=== PATIENT | female | born 1985 | race Caucasian/White ===

== ENCOUNTER → 2018-11-30 10:21 | Outpatient (CLI) | payer OTHER, SELFPAY | PROVIDERS: Visit Provider Obstetrics & Gynecology | DX: Z36.85 Encounter for antenatal screening for Streptococcus B (principal) | CPT/HCPCS: 87077; 87081; 87186 ==

== ENCOUNTER 2018-12-15 16:30 | Inpatient (IN) | payer OTHER, SELFPAY ==
[2018-12-15 16:58] VITALS: BMI 39.4
[2018-12-15] MEDS: Lactated Ringers 1,000 ML 50 ML IV (18:00)
[2018-12-15 18:15] LABS: Absolute Neutrophil Count 6.9 X10^3/uL (2.0-7.7); Basophil# 0.01 X10^3/uL; Basophil% 0.1 % (0-1); Eosinophil# 0.09 X10^3/uL; Eosinophils% 0.9 % (0-5); Hematocrit 33.8 % (37-47); Hemoglobin 10.8 g/dl (12.0-15.0); Lymphocyte % 20.2 % (19-41); Mean Corpuscular Hgb 26.3 pg (27.0-32.0); Mean Corpuscular Volume 82.4 fL (81-99); Mean Platelet Vol. 11.2 fl (6.2-12.0); Monocyte# 0.87 X10^3/uL; Monocyte% 8.8 % (0-10); Neutrophil % 69.6 % (47-70); Platelet Count 276 K/mm3 (150-450); RBC Distribution Width CV 15.8 % (11.6-14.6); RBC Distribution Width SD 46.1 fl (35.1-43.9); White Blood Count 9.9 K/mm3 (4.4-11.0)
[2018-12-15 18:16] LABS: POSITIVE COUNT NO; POSITIVE DIFFERENTIAL NO; POSITIVE MORPHOLOGY NO
--- NOTE | 2018-12-15 18:44 | PCM.HPOB.BLA ---
History and Physical Date of Admission: 12/15/18 OB HISTORY AND PHYSICAL EXAMINATION History of this : 33 yo female Ab0 with EDC 12/24/2018 by 8 weeks 3 days Ultrasound, presents to Labor and Delivery for induction of labor 2/2 cholestasis of at 38 5/7 wk EGA. She denies significant itching, states this has improved. care remarkable for - Cholestasis of noted at 38+ week visit; to L and D for induction Pertinent Past Medical History: A positive Rubella -immune Allergies: NKDA Medications: During - DHA 200 mg capsule; Augmentin 500 mg-125 mg tablet Review of Systems: Non-contributory PHYSICAL EXAMINATION General Appearence: 33 yo female in no acute distress Vital Signs: AF, VSS Heart: RRR without rubs or gallops Lungs: CTA x 2 Breasts: deferred Abdomen: gravid Pelvis: Cervix: L/Th/Cl high UNABLE TO PLACE SMITH CATHETER Presentation: cephalic Fetus: Size: AGA Movement: present Heart: 120-130s avg variability. Accels to 180s Occasional variables. Impression /Plan: Intrauterine .38 5/7 wk with cholestasis of . Admitted for induction of labor. Unable to place smith as cervix too closed for smith. IV started Irreg UCs and not painful. Begin cytotec induction of labor. Watch progress, descent. Plan for AROM and pitocin prn GBS positive. PCN for GBS prophylaxis. Will start this at approx 4 cm dilation. See Progress Notes for Changes: Physician's Signature: Date:
[2018-12-15] MEDS: 0.9% Saline Lock 10 ML Syringe IV (19:47)
--- NOTE | 2018-12-15 21:33 | PCM.PN.BLA ---
Progress Note Induction at 38 5/7 wk unfavorable cervix. Cholestasis of EFM 120-130 avg variability Accels Category I tracing UCs -- irregular q 1-5 mins CX: deferred A/P: Cholestasis of induction of labor at 38 5/7 wk Category I tracing Continue cytotec PO overnight. Unable to place smith bulb To AROM and pitocin as able.
[2018-12-16] MEDS: Acetaminophen 325 MG Tablet PO (00:03)
[2018-12-16] MEDS: 0.9% Normal Saline 100 ML IV.SOLN. INTRA-UTER (06:27)
--- NOTE | 2018-12-16 06:32 | PCM.PN.BLA ---
Progress Note LABOR INDUCTION progress note Able to rest, got some sleep. Cramping overnight but up and moving helped a little. denies any itching. AVSS Cytotec last dose given approx 4 am EFM 120-s avg variability. Accels to 150-160s Irregular UCs CX: softer, anterior , high. Smith inserted with stylette. Balloon inflated with 30 cc of NS A/P: 38 6/7 wk induction unfavorable cervix 2/2 cholestasis of . LFTs wnl but bile acids high. S/P three doses of Cytotec po. To smith bulb induction this am. Pitocin per protocol to begin 4 hr after last Cytotec dose.
[2018-12-16] MEDS: Ondansetron 4 MG/2 ML Vial IV (06:53)
[2018-12-16] MEDS: Nalbuphine 10 MG/ML Ampul IV ×2 (06:53→10:18)
[2018-12-16] MEDS: 0.9% Saline Lock 10 ML Syringe IV ×2 (06:54→08:16)
[2018-12-16] MEDS: Oxytocin 30 units/NS 500 ml 30 UNITS/500 ML IV.SOLN IV (08:16)
[2018-12-16] MEDS: proCHLORPERazine 10 MG/2 ML Vial IV (10:24)
[2018-12-16] MEDS: Lactated Ringers 1,000 ML 50 ML IV ×3 (12:45→22:57)
[2018-12-16] MEDS: fentaNYL-bupivacaine (epidural) 100 ML BAG EPIDURAL ×3 (13:23→22:57)
[2018-12-17] MEDS: Ondansetron 4 MG/2 ML Vial IV (00:24)
[2018-12-17] MEDS: proCHLORPERazine 10 MG/2 ML Vial IV (03:01)
[2018-12-17] MEDS: Oxytocin 30 units/NS 500 ml 30 UNITS/500 ML IV.SOLN 334 UNITS IV (04:58)
--- NOTE | 2018-12-17 05:18 | PCM.OPRPT ---
Vaginal Delivery Maternal Presentation: Medically Indicated Induction - Cholestasis of Method of Induction: Pitocin, Reid Bulb, Amniotomy, Cytotec Medical Reason for Induction: Maternal Medical Condition: list: - Cholestasis of Amniotic Membrane Rupture Type: Artificial Amniotic Fluid Description: Clear Final FANNY: 12/23/18 Final FANNY Source: US <20 weeks Gestational age: 39 Weeks and 1 Days Date of Procedure: 12/17/18 Pre-Operative Diagnosis: Intrauterine , Cholestasis of Post-Operative Diagnosis: Intrauterine , Cholestasis of Surgery/ Procedure Performed: Vacuum Assisted Vaginal Delivery Type of Anesthesia: Epidural Description of Procedure: Spontaneous vaginal delivery of a viable male with Apgars of 8/9 from an occiput anterior presentation with clear amniotic fluid and normal three-vessel placenta. First-degree midline episiotomy extended to a second-degree midline laceration repaired with 3-0 Rapide suture under epidural. Cervix protruded to introitus after delivery. Kiwi vacuum used x2 gentle pulls from low outlet after 4 hours of pushing and increasing maternal fatigue. Sponges okay. Delivery physician: Matthew Berumen MD. Presentation: Vertex Placental Delivery Description: Spontaneous Placenta Disposition: [facility] Cord Vessel Description: 3 Vessels Cord Gases drawn per routine: ABG Cord Entanglement: Around neck x 2, tight Estimated Blood Loss: 250 cc Infant A gender: Male (1 minute): 8 (5 minute): 9 Episiotomy Description: Midline, 1st degree Laceration: Midline, 2nd degree Medications given after delivery: IV Pitocin Complications: None
[2018-12-17] MEDS: Oxytocin 30 units/NS 500 ml 30 UNITS/500 ML IV.SOLN 167 UNITS IV (05:30)
[2018-12-17] MEDS: Methylergonovine 0.2 MG/ML Ampul IM (06:28)
[2018-12-17] MEDS: Ibuprofen 600 MG Tablet PO ×2 (06:34→13:01)
[2018-12-17 08:00] VITALS: BP 132/73; PULSE 76; RESP 18; TEMP 36.1
[2018-12-17] MEDS: Acetaminophen 500 MG Tablet 1000 MG PO (08:25)
--- NOTE | 2018-12-17 09:15 | NURSING ---
0830 pt oob up to chair; pt gait steady
[2018-12-17 12:00] VITALS: BP 138/82; PULSE 69; RESP 18; TEMP 36.1
[2018-12-17 16:22] VITALS: BP 126/70; RESP 16; TEMP 36.2; O2SAT 76
[2018-12-17 21:00] VITALS: BP 142/82; PULSE 88; RESP 16; TEMP 36.9
[2018-12-18] MEDS: Ibuprofen 600 MG Tablet PO ×3 (01:36→17:59)
[2018-12-18 03:04] VITALS: PULSE 79; RESP 17
[2018-12-18 04:00] VITALS: BP 112/69; PULSE 84; RESP 15
[2018-12-18 08:00] VITALS: BP 127/91; PULSE 76; RESP 18; TEMP 36
--- NOTE | 2018-12-18 10:00 | PCM.PN.OB ---
Subjective: Patient without complaints. Breast-feeding going well. Wants to stay another day. - Physical Exam Vital Signs Temp Pulse Resp BP Pulse Ox 98.5 F 84 15 112/69 76 12/17/18 21:00 12/18/18 04:00 12/18/18 04:00 12/18/18 04:00 12/17/18 16:22 Oxygen Delivery Method Room Air Weight: 229 lb 15.074 oz Body Mass Index (BMI) 39.4 Intake and Output for Last 24 Hours 12/16/18 12/17/18 12/18/18 23:59 23:59 23:59 Intake Total 2277 / 2277 1999 / 1999 550 / 550 Output Total 550 / 550 1050 / 1050 Balance 1727 / 1727 950 / 950 550 / 550 Medical Necessity - Tobacco Use Smoking Status: Never smoker Assessment/Plan Doing well day #1. Continuing present care.
[2018-12-18 14:00] VITALS: BP 131/78; PULSE 80; RESP 18; TEMP 36.8
--- NOTE | 2018-12-18 14:49 | PCM.DCVAG ---
Discharge Diet: No Restrictions Discharge Activity: May Shower, May Take a Tub Bath May resume sexual activity in: 4-6 weeks Additional Activity Instructions:: Nothing in the vagina for 4-6 weeks. You may return to work/school in 6 weeks. Call your doctor if you observe: Fever of 101 or Higher, Inability to urinate, Inability to have a bowel movement, Using more than one pad per hour Additional Instructions: If you experience any of the following, contact your healthcare provider. Bleeding that soaks a pad every hour for 2 hours Unrelieved incision or abdominal pain Swelling, redness, discharge or bleeding from your incision or episiotomy site Your incision begins to separate Problems urinating (including inability to urinate or burning while urinating). Visual changes Severe headache Flu-like symptoms Pain or redness in one of both of your breasts Pain, warmth, tenderness or swelling in your legs, especially the calf area Frequent nausea and vomiting Symptoms of depression or anxiety If you experience any of the following, call 911 or go to the nearest Emergency Room. Chest pain Problems breathing Seizure activity Partial or complete paralysis of a body part, slurred speech, weakness or drooping of the face, or a sudden inability to walk or hold your balance Allergies/Adverse Reactions: Allergies No Known Allergies Allergy (Verified 07/28/13 22:51) Medications to take at Discharge Vits [Prenatabs FA] 1 tablet PO DAILY 12/15/18 Please Follow Up With: Matthew Berumen MD - [phone] When: Call to make an appointment with your doctor in 6 weeks. Primary Care Physician: Bertha Sims MD [Primary Care Provider] - Test Results: Test results from this visit will be discussed in further detail at your follow-up appointment, if applicable.
--- NOTE | 2018-12-18 14:50 | DCINST_ITS ---
Discharge Diet: No Restrictions Discharge Activity: May Shower, May Take a Tub Bath May resume sexual activity in: 4-6 weeks Additional Activity Instructions:: Nothing in the vagina for 4-6 weeks. You may return to work/school in 6 weeks. Call your doctor if you observe: Fever of 101 or Higher, Inability to urinate, Inability to have a bowel movement, Using more than one pad per hour Additional Instructions: If you experience any of the following, contact your healthcare provider. * Bleeding that soaks a pad every hour for 2 hours * Unrelieved incision or abdominal pain * Swelling, redness, discharge or bleeding from your incision or episiotomy site * Your incision begins to separate * Problems urinating (including inability to urinate or burning while urinating). * Visual changes * Severe headache * Flu-like symptoms * Pain or redness in one of both of your breasts * Pain, warmth, tenderness or swelling in your legs, especially the calf area * Frequent nausea and vomiting * Symptoms of depression or anxiety If you experience any of the following, call 911 or go to the nearest Emergency Room. * Chest pain * Problems breathing * Seizure activity * Partial or complete paralysis of a body part, slurred speech, weakness or drooping of the face, or a sudden inability to walk or hold your balance Allergies/Adverse Reactions: Allergies No Known Allergies Allergy (Verified 07/28/13 22:51) Medications to take at Discharge Vits [Prenatabs FA] 1 tablet PO DAILY 12/15/18 Please Follow Up With: Matthew Berumen MD - [phone] When: Call to make an appointment with your doctor in 6 weeks. Primary Care Physician: Bertha Sims MD [Primary Care Provider] - Test Results: Test results from this visit will be discussed in further detail at your follow- up appointment, if applicable.
[2018-12-18 20:51] VITALS: BP 130/74; PULSE 76; RESP 18; TEMP 36.2
[2018-12-19 02:19] VITALS: BP 144/82; PULSE 65; RESP 18; TEMP 36
[2018-12-19 08:50] VITALS: BP 131/81; PULSE 85; RESP 14; TEMP 36.2
--- NOTE | 2018-12-19 11:05 | PCM.PN.OB ---
Subjective: Patient without complaints. Breast-feeding going well. Ready to go home today. - Physical Exam Vital Signs Temp Pulse Resp BP Pulse Ox 97.2 F L 85 14 131/81 H 76 12/19/18 08:50 12/19/18 08:50 12/19/18 08:50 12/19/18 08:50 12/17/18 16:22 Oxygen Delivery Method Room Air Weight: 229 lb 15.074 oz Body Mass Index (BMI) 39.4 Intake and Output for Last 24 Hours 12/17/18 12/18/18 12/19/18 23:59 23:59 23:59 Intake Total 1999 / 1999 550 / 550 Output Total 1050 / 1050 Balance 950 / 950 550 / 550 Medical Necessity - Tobacco Use Smoking Status: Never smoker Assessment/Plan Doing well day #2 status post routine spontaneous vaginal delivery. Will release to home with routine instructions.
--- NOTE | 2018-12-19 11:11 | DS.PCM_ITS ---
Discharge Summary Date of Admission: 12/15/18 Date of Discharge: 12/19/18 Summary: Admission diagnosis: 38+ Week Intrauterine with Cholestasis of Discharge diagnosis: 38+ Week Intrauterine with Cholestasis of Procedure: Spontaneous Vaginal Delivery HPI: 33 yo female Ab0 with EDC 12/24/2018 by 8 weeks 3 days Ultrasound, presents to Labor and Delivery for induction of labor 2/2 cholestasis of at 38 5/7 wk EGA. She denies significant itching, states this has improved. PE: Unremarkable. Hospital Course: The patient is a 33 year old who presented to L and D at 38+ weeks gestation. She had Cytotec started and after overnight Cytotec a Reid balloon was placed which allowed dilating the cervix to about 3 to 4 cm. Rupture of membranes was completed and she progressed and delivered via vacuum- assisted delivery the following day. the patient did well and it was felt that she was ready for discharge on post day #2. Homegoing Instruction: She was instructed not to drive for several days or if using narcotic pain medication, not to put anything in the vagina for 4 weeks and to call the office for an appointment in 6 weeks. Discharge Medications: Patient was instructed to continue vitamins and iron for about 6 weeks or as long she is breast-feeding. - Physical Exam Vital Signs Temp Pulse Resp BP Pulse Ox 97.2 F L 85 14 131/81 H 76 12/19/18 08:50 12/19/18 08:50 12/19/18 08:50 12/19/18 08:50 12/17/18 16:22 Oxygen Delivery Method Room Air Weight: 229 lb 15.074 oz Body Mass Index (BMI) 39.4 Intake and Output for Last 24 Hours 12/17/18 12/18/18 12/19/18 23:59 23:59 23:59 Intake Total 1999 / 1999 550 / 550 Output Total 1050 / 1050 Balance 950 / 950 550 / 550
== END 2018-12-19 11:20 | disposition home or self-care (01) | DRG 988 ==
PROVIDERS: Obstetrics & Gynecology; Admitting Provider Obstetrics & Gynecology; Family Provider Family Medicine; PCP Family Medicine; Referring Provider Obstetrics & Gynecology; Visit Provider Obstetrics & Gynecology
DX: K83.1 Obstruction of bile duct (principal); O26.62 Liver and biliary tract disorders in childbirth; Z37.0 Single live birth; O69.1XX0 Labor and delivery complicated by cord around neck, with compression, not applicable or unspecified; O70.1 Second degree perineal laceration during delivery; Z3A.39 39 weeks gestation of pregnancy; O26.813 Pregnancy related exhaustion and fatigue, third trimester; O99.613 Diseases of the digestive system complicating pregnancy, third trimester; K21.9 Gastro-esophageal reflux disease without esophagitis; O34.43 Maternal care for other abnormalities of cervix, third trimester; O99.820 Streptococcus B carrier state complicating pregnancy
CPT/HCPCS: 59025; 59050; 85025; 86850; 86900; J7120; A4216; J2405

== ENCOUNTER → 2018-12-22 10:00 | Outpatient (CLI) | payer OTHER, SELFPAY ==
[2018-12-15 16:58] VITALS: BMI 39.4
== END ==
PROVIDERS: Family Provider Family Medicine; PCP Family Medicine; Referring Provider Obstetrics & Gynecology; Visit Provider Obstetrics & Gynecology
DX: Z39.1 Encounter for care and examination of lactating mother (principal)
CPT/HCPCS: 96152

== ENCOUNTER → 2020-02-01 14:55 | Outpatient (CLI) | payer OTHER, SELFPAY ==
[2020-02-07 03:51] LABS: HPV Reflexed? NOT INDICATED
== END ==
PROVIDERS: PCP Family Medicine; Visit Provider Obstetrics & Gynecology
DX: Z12.4 Encounter for screening for malignant neoplasm of cervix (principal)
CPT/HCPCS: 88175; G0145

== ENCOUNTER → 2020-06-21 15:42 | Outpatient (CLI) | payer OTHER, SELFPAY | PROVIDERS: PCP Family Medicine; Referring Provider Nurse Practitioner Family; Visit Provider Nurse Practitioner Family | DX: Z20.828 Contact with and (suspected) exposure to other viral communicable diseases (principal) | CPT/HCPCS: 87635; U0003 ==

== ENCOUNTER → 2020-11-20 | Outpatient (CLI) | payer OTHER, SELFPAY ==
[2020-11-20 15:50] LABS: Absolute Lymphocyte Count 2.29 X10^3/uL (0.83-4.51); Absolute Neutrophil Count 7.4 X10^3/uL (2.0-7.7); Basophil# 0.05 X10^3/uL; Basophil% 0.5 % (0-1); Eosinophils% 0.9 % (0-5); Hematocrit 39.7 % (37-47); Hemoglobin 12.8 g/dL (12.0-15.0); Lymphocyte # 2.29 X10^3/ul (0.83-4.51); Lymphocyte % 21.7 % (19-41); Mean Corp Hgb Conc 32.2 g/dL (32-36); Mean Corpuscular Hgb 28.6 pg (27.0-32.0); Mean Corpuscular Volume 88.6 fL (81-99); Mean Platelet Vol. 9.5 fl (6.2-12.0); Monocyte# 0.68 X10^3/uL; Monocyte% 6.4 % (0-10); NRBC Flagged by Analyzer 0 % (0-5); Neutrophil # 7.37 X10^3/uL (2.7-7.7); Neutrophil % 69.9 % (47-70); Platelet Count 367 K/mm3 (150-450); RBC Distribution Width CV 13.3 % (11.6-14.6); Red Blood Count 4.48 M/mm3 (4.2-5.4); White Blood Count 10.6 K/mm3 (4.4-11.0)
[2020-11-20 15:51] LABS: Color, Urine Yellow (Yellow); Glucose, Dipstick Normal (Normal); Ketone-Dipstick Negative (Negative); Leukocyte Esterase-Dipstick Negative /ul (Negative); Nitrite-Dipstick Negative (Negative); Occult Blood-Urine 10 /ul (Negative); Protein-Dipstick 15 mg/dl (Negative); Specific Gravity, Urine 1.025 (1.002-1.030); Urine Bilirubin Dipstick Negative (Negative); Urine Clarity Clear (Clear); Urine Urobilinogen Normal (Normal)
[2020-11-20 16:09] LABS: Thyroid Stim Hormone (TSH) 1.25 uIU/mL (0.358-3.74)
[2020-11-21 08:17] LABS: HIV - WCH Non-Reactive (Nonreactive); Hepatitis B Surface Antigen Non-Reactive (Nonreactive); Hepatitis C Antibody Non-Reactive (Nonreactive); Rubella IgG Reactive (Nonreactive); Syphilis Antibodies Non-reactive
[2020-11-25 04:06] LABS: Chlamydia By Nucleic Acid AMP Negative (Negative)
[2020-11-25 07:59] LABS: Gonococcus By Nucleic Acid AMP Negative (Negative)
== END | disposition home or self-care (01) ==
LOC: LABSPEC 14:59
PROVIDERS: PCP Family Medicine; Visit Provider Obstetrics & Gynecology
DX: Z32.01 Encounter for pregnancy test, result positive (principal)
CPT/HCPCS: 36415; 81002; 84443; 85025; 86703; 86762; 86780; 86803; 87340; 87491; 87591

== ENCOUNTER → 2021-02-27 10:19 | Outpatient (CLI) | payer OTHER, SELFPAY ==
[2021-02-27 10:51] LABS: Hematocrit 35.2 % (37-47); Hemoglobin 11.2 g/dL (12.0-15.0); Mean Corp Hgb Conc 31.8 g/dL (32-36); Mean Corpuscular Volume 91.2 fL (81-99); Mean Platelet Vol. 9.6 fl (6.2-12.0); Platelet Count 299 K/mm3 (150-450); RBC Distribution Width CV 14.6 % (11.6-14.6); Red Blood Count 3.86 M/mm3 (4.2-5.4); White Blood Count 10.4 K/mm3 (4.4-11.0)
[2021-02-27 11:19] LABS: ALB/GLOB Ratio 0.7 RATIO (0.9-2.4); AST(SGOT) 16 U/L (15-37); Alanine Aminotransfer ALT/SGPT 21 U/L (13-56); Albumin, Serum 2.7 g/dL (3.2-5.0); Alkaline Phosphatase 89 U/L (45-117); Anion Gap 9 (5-15); BUN 7 mg/dL (7-18); BUN/Creat Ratio 16.8 RATIO (10-20); Calcium,Total 8.8 mg/dL (8.5-10.1); Chloride 104 mmol/L (98-107); Creatinine, Serum 0.42 mg/dL (0.55-1.02); EST Glomerular Filtration Rate 185 mL/min (>60); Est Glom Filt Rate - Afr Amer 224 mL/min (>60); Globulin 4.1 g/dL (2.2-4.2); Glucose 97 mg/dL (74-106); Glucose Challenge Gest 1H 50g 97 mg/dL (70-140); Potassium 3.4 mmol/L (3.5-5.1); Protein, Total 6.8 g/dL (6.4-8.2); Sodium Level 138 mmol/L (136-145)
== END ==
PROVIDERS: PCP Family Medicine; Visit Provider Obstetrics & Gynecology
DX: Z34.82 Encounter for supervision of other normal pregnancy, second trimester (principal)
CPT/HCPCS: 36415; 80053; 82950; 85027

== ENCOUNTER 2021-04-27 09:05 | Outpatient (CLI) | payer OTHER, SELFPAY ==
[2021-04-27 09:16] VITALS: BMI 36.4
[2021-04-27 09:20] VITALS: O2SAT 99
[2021-04-27 09:21] VITALS: BP 126/82; PULSE 94
[2021-04-27 09:25] VITALS: PULSE 97; O2SAT 97
[2021-04-27] MEDS: Ondansetron 4 MG/2 ML Vial IV (09:55)
[2021-04-27] MEDS: Lactated Ringers 500 ML 999 ML IV (09:55)
--- NOTE | 2021-04-27 10:00 | PN.OBGYN_ITS ---
Subjective Subjective 35-year-old G2, P1 at 34 weeks presenting with back pain and nausea. Patient states back pain started in her lower back towards the end of last week and progressed towards her thoracic region and across her anterior rib cage. Pain is mostly achy with occasional sharp pain. Improved with warm bath and sometimes ice, but returns when she gets out of bed shortly after. Tylenol has not helped. Reports mild nausea without emesis. States she has not eaten or drank much since . Denies headache, vision changes, shortness of breath, chest pain, right upper quadrant pain. Denies vaginal bleeding, leaking of fluid, contractions. Reports movement. She went to urgent care last night and had leukocytes in her urinalysis and was started on Keflex. She has taken 2 doses at this time. complicated by: Obesity, history of cholestasis Objective Data Objective Data Vital Signs: Vital Signs Pulse BP Pulse Ox 97 126/82 H 97 04/27/21 09:25 10 09:21 04/27/21 09:25 Weight: 96.343 kg Body Mass Index (BMI) 36.4 ROS Constitutional Constitutional: Reports systems reviewed and no addt'l complaints, except as documented Eyes Eyes: Reports systems reviewed and no addt'l complaints, except as documented ENT HEENT: Reports systems reviewed and no addt'l complaints, except as documented Cardiovascular Cardiovascular: Reports systems reviewed and no addt'l complaints, except as documented Respiratory/Chest Respiratory/Chest: Reports systems reviewed and no addt'l complaints, except as documented Gastrointestinal Gastrointestinal: Reports systems reviewed and no addt'l complaints, except as d ocumented Genitourinary Genitourinary: Reports systems reviewed and no addt'l complaints, except as documented Musculoskeletal Musculoskeletal: Reports systems reviewed and no addt'l complaints, except as documented Neurologic Neurologic: Reports systems reviewed and no addt'l complaints, except as documented Psychiatric Psychiatric: Reports systems reviewed and no addt'l complaints, except as documented Physical Exam Const alert, oriented x3 and no apparent distress Constitutional Narrative: Comfortable in room HEENT normocephalic Head and Scalp: atraumatic Eyes PERRL and EOMs intact bilaterally Neck full ROM Resp normal respiratory effort, no use of accessory muscles and clear to auscultation bilaterally Cardio regular rate and regular rhythm GI normal to inspection, nondistended, normoactive bowel sounds GI Narrative: No right upper quadrant tenderness Inspection: gravid Narrative: Cervix closed thick and high Back/Spine no CVA tenderness, normal ROM and normal to inspection General Back: Negative for tenderness Extremity normal to inspection, full ROM and no clubbing, cyanosis or edema Skin no rashes or lesions noted Neuro moves all extremities, no focal motor deficits and no sensory deficits noted Psych mental status grossly normal and affect normal Assessment & Plan (1) Back pain affecting : QUALIFIERS: Trimester: third trimester Qualified Code(s): O99.891 - Other specified diseases and conditions complicating ; M54.9 - Dorsalgia, unspecified PLAN: at 34 weeks presenting with back pain. Likely musculoskeletal pain of . However with nausea present we will get blood work to rule out preeclampsia. Patient has no other symptoms. 500 cc IV fluid bolus, Zofran, Flexeril given. Patient not in labor, intermittent contractions which patient does not feel, cervix is closed. No tenderness on back or abdominal exam. Discussed musculoskeletal pain in and how this changes with subsequent pregnancies and worsens. Continue supportive care. (2) Obesity (BMI 35.0-39.9 without comorbidity):
[2021-04-27 10:10] LABS: Hemoglobin 11.5 g/dL (12.0-15.0); Mean Corp Hgb Conc 31.9 g/dL (32-36); Mean Corpuscular Hgb 27.4 pg (27.0-32.0); Mean Corpuscular Volume 85.7 fL (81-99); Mean Platelet Vol. 10.1 fl (6.2-12.0); Platelet Count 224 K/mm3 (150-450); RBC Distribution Width CV 15.9 % (11.6-14.6); White Blood Count 6.6 K/mm3 (4.4-11.0)
[2021-04-27] MEDS: cycloBENZAPRine HCl 10 MG Tablet PO (10:19)
[2021-04-27 10:30] LABS: ALB/GLOB Ratio 0.5 RATIO (0.9-2.4); AST(SGOT) 44 U/L (15-37); Alanine Aminotransfer ALT/SGPT 32 U/L (13-56); Albumin, Serum 2.4 g/dL (3.2-5.0); Alkaline Phosphatase 162 U/L (45-117); Anion Gap 9 (5-15); BUN 5 mg/dL (7-18); BUN/Creat Ratio 10.3 RATIO (10-20); Calcium,Total 8.2 mg/dL (8.5-10.1); Chloride 105 mmol/L (98-107); Creatinine, Serum 0.49 mg/dL (0.55-1.02); EST Glomerular Filtration Rate 155 mL/min (>60); Est Glom Filt Rate - Afr Amer 187 mL/min (>60); Globulin 4.5 g/dL (2.2-4.2); Glucose 91 mg/dL (74-106); LDH 268 U/L (84-246); Potassium 3.4 mmol/L (3.5-5.1); Protein, Total 6.9 g/dL (6.4-8.2); Sodium Level 136 mmol/L (136-145); Uric Acid 5.9 mg/dL (2.6-6.0)
[2021-04-27 10:37] LABS: Mucous, Urine 0 SEEN /hpf (<or=2+); Red Blood Cells-Urine 0 SEEN /hpf (0-5); White Blood Cells 0 SEEN /hpf (0-5)
[2021-04-27 10:38] LABS: Color, Urine Yellow (Yellow); Glucose, Dipstick Normal (Normal); Ketone-Dipstick 50 mg/dl (Negative); Leukocyte Esterase-Dipstick Negative /ul (Negative); Nitrite-Dipstick Negative (Negative); Occult Blood-Urine Negative /ul (Negative); Protein-Dipstick Negative (Negative); Urine Bilirubin Dipstick Negative (Negative); Urine Clarity Sl. Cloudy (Clear); Urine Urobilinogen 1 mg/dl (Normal); Urine pH 6.5 (5.0 - 8.0)
[2021-04-27 10:46] LABS: Bacteria 1+ /hpf (None Seen); Squamous Epithelial Cells - UA 0-5 SEEN /hpf (5-10)
[2021-04-27 10:55] LABS: Protein, Urine (Random) 19.6 mg/dL (<11.9); Protein:Creat Ratio 282 mg/g CRE (0-200)
[2021-04-27 11:03] VITALS: BP 120/81; PULSE 83
== END 2021-04-27 12:00 | disposition home or self-care (01) ==
LOC: WPOUT 09:15 → WP 09:15
PROVIDERS: PCP Family Medicine; Visit Provider Student in an Organized Health Care Education/Training Program
DX: O99.891 Other specified diseases and conditions complicating pregnancy (principal); M54.9 Dorsalgia, unspecified; R11.0 Nausea; O99.213 Obesity complicating pregnancy, third trimester; Z3A.34 34 weeks gestation of pregnancy
CPT/HCPCS: 96361; 96374; 36415; 59025; 59050; 80053; 81001; 82570; 83615; 84156; 84550; 85027; 99218; J7120; G0378; J2405

== ENCOUNTER → 2021-05-02 10:07 | Outpatient (CLI) | payer OTHER, SELFPAY ==
[2021-05-02 11:37] LABS: Hematocrit 35.2 % (37-47); Hemoglobin 10.9 g/dL (12.0-15.0); Mean Corpuscular Volume 87.1 fL (81-99); Mean Platelet Vol. 10.3 fl (6.2-12.0); Platelet Count 253 K/mm3 (150-450); RBC Distribution Width CV 15.9 % (11.6-14.6); RBC Distribution Width SD 49.7 fl (35.1-43.9); Red Blood Count 4.04 M/mm3 (4.2-5.4); White Blood Count 8.8 K/mm3 (4.4-11.0)
[2021-05-02 11:50] LABS: ALB/GLOB Ratio 0.6 RATIO (0.9-2.4); AST(SGOT) 27 U/L (15-37); Alanine Aminotransfer ALT/SGPT 35 U/L (13-56); Albumin, Serum 2.5 g/dL (3.2-5.0); Alkaline Phosphatase 175 U/L (45-117); Anion Gap 6 (5-15); BUN 7 mg/dL (7-18); BUN/Creat Ratio 15.7 RATIO (10-20); Calcium,Total 8.9 mg/dL (8.5-10.1); Chloride 110 mmol/L (98-107); Creatinine, Serum 0.45 mg/dL (0.55-1.02); EST Glomerular Filtration Rate 170 mL/min (>60); Est Glom Filt Rate - Afr Amer 206 mL/min (>60); Globulin 4.2 g/dL (2.2-4.2); Glucose 92 mg/dL (74-106); LDH 243 U/L (84-246); Potassium 3.8 mmol/L (3.5-5.1); Protein, Total 6.7 g/dL (6.4-8.2); Sodium Level 139 mmol/L (136-145)
== END ==
PROVIDERS: PCP Family Medicine; Visit Provider Obstetrics & Gynecology
DX: K71.0 Toxic liver disease with cholestasis (principal); M54.9 Dorsalgia, unspecified
CPT/HCPCS: 36415; 80053; 83615; 85027

== ENCOUNTER → 2021-05-13 | Outpatient (CLI) | payer OTHER, SELFPAY | END | disposition home or self-care (01) | LOC: LABSPEC 14:05 | PROVIDERS: PCP Family Medicine; Visit Provider Obstetrics & Gynecology | DX: Z36.85 Encounter for antenatal screening for Streptococcus B (principal) | CPT/HCPCS: 87077; 87081; 87186 ==

== ENCOUNTER 2021-06-06 06:50 | Inpatient (IN) | payer OTHER, SELFPAY ==
[2021-06-06] VITALS (40 sets, daily range): BP systolic 110–157; BP diastolic 57–90; PULSE 67–109; RESP 18; TEMP 36.1–36.4; O2SAT 98–100; BMI 38.2
[2021-06-06] MEDS: Lactated Ringers 1,000 ML 50 ML IV (07:30)
[2021-06-06 07:49] LABS: Absolute Lymphocyte Count 2.18 X10^3/uL (0.83-4.51); Basophil# 0.04 X10^3/uL; Basophil% 0.4 % (0-1); Hemoglobin 11.3 g/dL (12.0-15.0); Lymphocyte # 2.18 X10^3/ul (0.83-4.51); Lymphocyte % 21.9 % (19-41); Mean Corp Hgb Conc 31.4 g/dL (32-36); Mean Corpuscular Hgb 26.2 pg (27.0-32.0); Mean Corpuscular Volume 83.5 fL (81-99); Mean Platelet Vol. 10.3 fl (6.2-12.0); Monocyte# 0.59 X10^3/uL; Monocyte% 5.9 % (0-10); NRBC Flagged by Analyzer 0 % (0-5); Neutrophil # 6.95 X10^3/uL (2.7-7.7); Neutrophil % 69.9 % (47-70); Platelet Count 302 K/mm3 (150-450); RBC Distribution Width CV 16.6 % (11.6-14.6); RBC Distribution Width SD 50.7 fl (35.1-43.9); Red Blood Count 4.31 M/mm3 (4.2-5.4)
[2021-06-06] MEDS: Oxytocin 30 units/NS 500 ml 30 UNITS/500 ML IV.SOLN IV (07:53)
--- NOTE | 2021-06-06 08:17 | HP.PCM_ITS ---
History and Physical Date of Admission: 06/06/21 ACOG ANTEPARTUM RECORD - HISTORY AND PHYSICAL (06/06/2021) Name: FIFI WALLACE History of this : This is a 35 year old [id number] presents at 39 wks + 6 days gestation for elective induction. OB Physician: Matthew Berumen MD 's Physician: Estevan ...................................................................... : 1985 Age: 35 Address: [address] [place] [address] Phone: H) [phone] Insurance Carrier: [facility] [id number] Emergency Contact: ROJELIO GARZA [phone] ...................................................................... Final FANNY: 06/07/21 By Ultrasound: 11 weeks 4 days PARITY: (G-Total Pregnancies P-Fullterm,Premature,Induced AB,Spont AB, Ectopics, Multiple,Living) FANNY CONFIRMATION: By LMP: 09/20/20 Initial Exam: 06/27/21 By First Ultrasound Exam: 06/07/21 Final FANNY: 06/07/21 OB PROBLEM LIST: 4 hr 2nd stage with her first delivery, Kiwi assist ; encouraged a class Cholestasis prior -- baby ASA daily after 16 weeks cHTN , on no meds Declined genetic and carrier screening Desires IUD at visit H/O depression, had been taking Wellbutrin; weaned off. EPDS on 11/20/20 = 3 --OFF Wellbutrin h/o GBS positive Plans epidural ALLERGIES: NKDA MEDICATIONS: 28 mg iron-800 mcg tablet One pill by mouth once a day Wellbutrin XL 300 mg 24 hr tablet, extended release One pill by mouth once a day Zofran 4 mg tablet One pill by mouth four times a day prn nausea SOCIAL HISTORY: Smoking - Never Alcohol Use - denies drinking Diet - moderate, balanced diet Lifestyle - low stress lifestyle and Exercise - active work and Enc to walk 20 min day. Employer - [employer] Job Description - RN Illicit Drug Use - denies use of street drugs Sexual Activity - Residence - lives with Place of - [place] Hours Worked - 36-40 Spouse-Sig Other Name - Fan Wallace Spouse-Sig Other Occupation - [employer] Car Operator Spouse-Sig Other Phone No - [phone] Children Name(s) - Fredy(19) PRIOR DELIVERY HISTORY DEL DATE GEST LAB WT LB WT OZ TYPE ANES LABOR TX 01 Jan 04 39 32 8 2 Vacuu Epidural No ANTEPARTUM FLOW CHART VISIT GE RTC FU F F TX U U DATE WK MD WKS HT PN HR M SS BP ED WT TX GL D EF ST __ ____ ___ __ __ ___ __ __ __ ___ __ __ __ ___ __ 17 Nov 39 SHM + + 130/84 tr 228 tr ne May JMW 1 38 V + + 124/80 sl 227 - - 1 50 -2 03 May JMW 1 37 + + 122/76 sl 228 ne ne Apr 36 JM 1 36 V + + 130/90 sl 228 tr tr 1 15 Apr JM 2 34 V + + 138/80 sl 225 tr - 01 Apr JM 2 32 V + + O 129/98 0 227 - - 02 Apr 15 JMW 3 28 + + 136/74 tr 225 tr ne Mar 12 JMW 4 25 + + 136/86 sl 223 tr - 30 Feb 07 SHM 4 25 + + 154/88 0 220 - - 02 Feb 03 SHM 4 21 on O 130/78 0 217 - - Jan 01 JMW 4 16 + ? 142/70 sl 217 - - ANTEPARTUM NOTE(S): Jun 04 2021: May 28 2021: Good FM May 21 2021: Doing Well May 13 2021: feeling well. GBS and LARC today. AM May 02 2021: Slight lower leg/ankle edema,Good FM Apr 18 2021: Mar 20 2021: going to [place] Feb 27 2021: CM,.CBC,OGCT Today,Good FM Feb 14 2021: see note Jan 17 2021: see note Dec 26 2020: doing well, Declines AFP COMPREHENSIVE ANTEPARTUM NOTE(S): Jun 04 2021: Fifi is here for NST and visit at 39.4 w. Mimimal contr at home. Feeling well but tired and ready for labor. NST reactive per Dr JASSO. She would like cervix check today. SIDNEY. Jun 04 2021: Induction scheduled for 06/06/21 at 7 am, they prefer to do her Covid swab Wednesday am, confirmed and offered that I could do it but again declined. LMT May 28 2021: Fifi is here at 38 w 4 d for her NST. She states that she feels okay, and that she feels good FM. She denies spotting/LoF, and noted occasional mild cramping and BH ctx's. Slight edema noted below knees. NST reactive, read per Dr. Berumen. AW May 21 2021: Fifi is here at 37.4 weeks for initial NST for possible chronic HTN. Procedure explained and questions answered. Baby active. Some puffiness at ankles but < 1+. Feeling well. Only concern is if she needs IOL as first one was > 30 h with 4 h second stage. BP good today. Feeling well. SIDNEY. May 20 2021: H taken to OB. tkg May 13 2021: 36 weeks, growth ultrasound today AGA, vertex. GBS collected today. Chronic hypertension on no medication. For NSTs weekly until delivery. Consider induction of labor at 38 to 39 weeks, scheduled next visit. PO May 02 2021: 34 weeks, chronic hypertension on no medications. Blood pressures within normal limits today. Last set of HELLP labs AST 44, ALT wnl. At this time meets no diagnostic criteria but will repeat HELLP labs today. Ordered for growth ultrasound next visit. GBS next visit. At this time chronic hypertension consider induction of labor at 38 to 39 weeks. PO Apr 18 2021: 32 weeks, based on review of chart of blood pressures and history, patient states that she always has blood pressures even in previous pre gnancy in the 140s, patient diagnosed with chronic hypertension based on elevated blood pressures prior to 20 weeks. Remains asymptomatic and on no medications. Consider growth ultrasound at 36 weeks and delivery at 38 to 39 weeks. PO Mar 20 2021: Fifi is here for PNV. Feeling well with good FM. Just a trace of swelling noted in feet and ankles. Nothing noted in hands. Voices no concerns today. Has stopped monitoring BP at home. Urine tr/neg. LSS Feb 27 2021: Fifi presents here today for PNV and had been ask to check BP's at home until this visit as last visit was slightly elevated. Recorded BP's of: 02/17 103/68, 02/19 121/77, 02/21 114/67, 02/23 112/78, 02/25 124/82, 02/27 116/70 all with home monitor. LIBRADO Feb 14 2021: Fifi is here for visit. She relates diagnosed with bronchitis and bilateral ear infection. She is on Keflex and Albuterol currently. She is feeling reliable mvmt for the last few days. Discussed Tdap in last trimester. Glucola given today with instructions. B/P is slightly elevated today 154/88 x3. LMT Feb 14 2021: Plans trip to [facility] in March. Reviewed DVT precautions including compression stockings, foot pumping, stopping q1-2h for ambulation, hydration. Reports SOB with activity since dx of bronchitis. Denies fever, chills. Using albuterol inhaler per PCP prn. Last use 2 days ago. Denies shortness of breath with resting, lying on back, no orthopnea. Coughing mostly at night with additional postnas Jan 17 2021: Fifi is here with her for visit, comp u/s. She relates concern over not feeling mvmt. She has not felt any mvmt yet and felt it by this time with her last . Relates last visit Dr Berumen had a little trouble getting FHT. Reviewed that every is different and I am not really sure why she is not feeling mvmt. She is welcome to come in at any time for FHT ck if she Jan 17 2021: Discussed norms of palpable movement. If no movement by 28wga then plan for weekly monitoring. Discussed r/b of home Doppler monitoring. Anatomy scan today wnl, EFW 50th%. Posterior placenta. MALE, circ planned. Nov 26 2020: NOB TELEHEALTH VISIT, 30 MINUTE DURATION. Fifi is a 34 year old with an FANNY of 06/07/2021, current GA is 12 w 3 d. She resides with her , Fan, and their nearly 2 yr old son, Fredy. Fredy was delivered vaginally at [facility] with Kiwi assist, following a 4 hr 2nd stage. Fifi's labor was induced d/t Cholestasis of . Past history updated. Fifi plans to deliver at Nov 20 2020: ok Nov 20 2020: Fifi presents here today with spouse(Fan) for Missed Menses appointment. 34 y.o. G 2 P 1 non-smoker with LMP -- 09-20-20 lasting 2 days. UPT is positive today in our Office. Presents at 8 weeks 5 days with an FANNY of approximately 12-10-21. Previous at [facility] in 2019. Denies spotting/bleeding thus far in . Currently taking an OTC Vitamin and Wellbutrin 300 mg daily. Medica REVIEW OF SYSTEMS: GENERAL - Denies fever, or chills SKIN - Denies rash, new skin lesions, or change in moles EYES - Denies blurred vision, or change in visual acuity EARS - Denies ear pain, or difficulty hearing NOSE - Denies nasal congestion, discharge, or bleeding MOUTH - Denies sore throat, or difficulty swallowing NECK - Denies pain or swelling RESPIRATORY - Denies shortness of breath, cough, wheezing CARDIOVASCULAR - Denies palpitations, chest pain, orthopnea, PND, peripheral edema, syncope or claudication GASTROINTESTINAL - Denies nausea, vomiting, diarrhea, constipation, Denies abdominal pain, melena and or bright red blood GENITOURINARY - Denies dysuria, frequency of urination, urgency, or hesitancy MUSCULOSKELETAL - Denies joint or muscle pain, or back pain NEUROLOGICAL - Denies localized numbness, weakness, or tingling PSYCHIATRIC - Denies depression, anxiety, substance abuse or suicide attempts ENDOCRINE - Denies heat or cold intolerance, weight loss or gain, increasing thirst HEMATO-IMMUNOLOGIC - Denies easy bruising, bleeding, oral ulcerations or recurrent infections GENETICS SCREENING: Age 35+ years: No Thalassemia: No Neural Tube Defect: No Down Syndrome: No SAYRA-SACHS: No Sickle Cell Disease: No Hemophilia: No Musc. Dystrophy: No Cystic Fibrosis: No-declines screening [place] Chorea: No Mental Retardation: No Fragile X: No Other genetic: No Other defects: No SABs/still births: No Drugs since LMP: No INFECTION HISTORY: High risk AIDS: No High risk Hepatitis: No Exposed to TB: No Exposed to Herpes: No Rash/viral illness since LMP: No History of STD: No MENSTRUAL HISTORY: *Menses Amount/Duration: 2 daysMenses Regularity: RegularFrequency: monthlyMenarche (Age Onset): 13* PAST SUMMARY: PARITY: 1. Total Pregnancies............ 2 2. Full Term Pregnancies........ 1 3. Premature.................... 0 4. Abortions - Induced.......... 0 5. Abortions - Spontaneous...... 0 6. Ectopics..................... 0 7. Multiple Births.............. 0 8. Living Children.............. 1 PAST #1: Date of :.................. 12/17/18 Gestation Weeks:................ 39 Length of labor(hours):......... 32 Sex:............................ M Weight-lbs:............... 8 Weight-oz:................ 2 Type of Delivery:............... Vacuum Type of Anesthesia:............. Epidural Place of Delivery:.............. [place] Treatment of Labor?:.... No Comment: IOL, CHOLESTASIS, +GBS PHYSICAL EXAMINATION General Appearence: 35 yo female in no acute distress Vital Signs: AF, VSS Heart: RRR without rubs or gallops Lungs: CTA x 2 Breasts: deferred Abdomen: gravid Pelvis: Cervix: Presentation: cephalic Station: Fetus: Size: AGA Movement: present Heart: present LAB TEST(S) ORDERED SINCE:09/10/20 06/06/2021 CBC W/DIFF, AUTOMATED 05/18/2021 RULE OUT BETA STREP (GRP. B) 05/02/2021 LDH 05/02/2021 COMPREHENSIVE METABOLIC PROFIL 05/02/2021 CBC-COMPLETE BLOOD CNT NO DIFF 04/27/2021 URINALYSIS, COMPLETE 04/27/2021 URIC ACID 04/27/2021 SERUM CREATININE AND GFR 04/27/2021 PROTEIN+CREATININE RATIO,URINE 04/27/2021 LDH 04/27/2021 COMPREHENSIVE METABOLIC PROFIL 04/27/2021 CBC-COMPLETE BLOOD CNT NO DIFF 02/27/2021 GLUCOSE CHALLENGE GEST 1H 50G 02/27/2021 COMPREHENSIVE METABOLIC PROFIL 02/27/2021 CBC-COMPLETE BLOOD CNT NO DIFF 11/25/2020 CHLAMYDIA/GC MAREK APTIMA 11/21/2020 RUBELLA IGG 11/21/2020 L509.8000 11/21/2020 HIV - [facility] 11/21/2020 HEPATITIS C ANTIBODY 11/21/2020 HEPATITIS B SURFACE ANTIGEN 11/20/2020 URINALYSIS, ROUTINE (DIPSTICK) 11/20/2020 THYROID STIM HORMONE (TSH) 11/20/2020 T AND S-NO CHARGE W/PNP 11/20/2020 CBC W/DIFF, AUTOMATED == ==== Order Observation Description Value Ref_Range A* Site == ==== CBC W/DIFF, AUT NOTE [facility] CBC W/DIFF, AUT WBC 10.0 K/mm3 4.4-11.0 ML CBC W/DIFF, AUT RBC 4.31 M/mm3 4.2-5.4 ML CBC W/DIFF, AUT HGB 11.3 g/dL 12.0-15.0 L ML CBC W/DIFF, AUT HCT 36.0 37-47 L ML CBC W/DIFF, AUT MCV 83.5 fL 81-99 ML CBC W/DIFF, AUT MCH 26.2 pg 27.0-32.0 L ML CBC W/DIFF, AUT MCHC 31.4 g/dL 32-36 L ML CBC W/DIFF, AUT RDW CV 16.6 11.6-14.6 H ML CBC W/DIFF, AUT RDW SD 50.7 fl 35.1-43.9 H ML CBC W/DIFF, AUT PLT 302 K/mm3 150-450 ML CBC W/DIFF, AUT MPV 10.3 fl 6.2-12.0 ML CBC W/DIFF, AUT NEUT% 69.9 47-70 ML CBC W/DIFF, AUT LY% 21.9 19-41 ML CBC W/DIFF, AUT MONO% 5.9 0-10 ML CBC W/DIFF, AUT EO% 1.0 0-5 ML CBC W/DIFF, AUT BASO% 0.4 0-1 ML CBC W/DIFF, AUT IG% 0.900 0.0-0.9 ML IG% - Immature Granulocytes (promyelocytes, myelocytes and metamyelocytes) > 1% indicates that a LEFT SHIFT is Present. CBC W/DIFF, AUT ABSOLUTE NEUT 7.0 X10 3/uL 2.0-7.7 ML CBC W/DIFF, AUT ABSOLUTE LYMPH 2.18 X10 3/uL 0.83-4.51 ML CBC W/DIFF, AUT NUCLEATED RBC 0 0-5 ML RULE OUT BETA S NOTE [facility] LDH NOTE [facility] LDH LDH 243 U/L 84-246 ML COMPREHENSIVE M NOTE [facility] COMPREHENSIVE M GLU 92 mg/dL 74-106 ML Please note revised GLUCOSE reference range effective 08/20/2017. COMPREHENSIVE M BUN 7 mg/dL 7-18 ML COMPREHENSIVE M CREAT,SERUM 0.45 mg/dL 0.55-1.02 L ML The validity of the calculated GFR GFRAA in patients over 70 years has not been determined. Clinical correlation is essential. COMPREHENSIVE M EST GFR 170 mL/min >60 ML Non- GFR Calc COMPREHENSIVE M EST GFR - AA 206 mL/min >60 ML GFR Calc COMPREHENSIVE M BUN/CRE 15.7 RATIO 10-20 ML COMPREHENSIVE M T PROT 6.7 g/dL 6.4-8.2 ML COMPREHENSIVE M ALB 2.5 g/dL 3.2-5.0 L ML COMPREHENSIVE M GLOB 4.2 g/dL 2.2-4.2 ML COMPREHENSIVE M A/G 0.6 RATIO 0.9-2.4 L ML COMPREHENSIVE M CA,TOTAL 8.9 mg/dL 8.5-10.1 ML COMPREHENSIVE M AST 27 U/L 15-37 ML COMPREHENSIVE M ALK P 175 U/L 45-117 H ML COMPREHENSIVE M ALT 35 U/L 13-56 ML COMPREHENSIVE M T BILI 0.40 mg/dL 0.20-1.00 ML For patients on eltrombopag therapy, use of Dimension [place] TBIL is not recommended. COMPREHENSIVE M NA 139 mmol/L 136-145 ML COMPREHENSIVE M POTASSIUM 3.8 mmol/L 3.5-5.1 ML COMPREHENSIVE M CL 110 mmol/L 98-107 H ML COMPREHENSIVE M CO2 23.0 mmol/L 21.0-32.0 ML COMPREHENSIVE M GAP 6 5-15 ML CBC-COMPLETE BL NOTE [facility] CBC-COMPLETE BL WBC 8.8 K/mm3 4.4-11.0 ML CBC-COMPLETE BL RBC 4.04 M/mm3 4.2-5.4 L ML CBC-COMPLETE BL HGB 10.9 g/dL 12.0-15.0 L ML CBC-COMPLETE BL HCT 35.2 37-47 L ML CBC-COMPLETE BL MCV 87.1 fL 81-99 ML CBC-COMPLETE BL MCH 27.0 pg 27.0-32.0 ML CBC-COMPLETE BL MCHC 31.0 g/dL 32-36 L ML CBC-COMPLETE BL RDW CV 15.9 11.6-14.6 H ML CBC-COMPLETE BL RDW SD 49.7 fl 35.1-43.9 H ML CBC-COMPLETE BL PLT 253 K/mm3 150-450 ML CBC-COMPLETE BL MPV 10.3 fl 6.2-12.0 ML PROTEIN+CREATIN NOTE [facility] PROTEIN+CREATIN UR CREAT 69.60 mg/dL NO RANGE EST. ML PROTEIN+CREATIN PROTEIN,UR.RAN. 19.6 mg/dL <11.9 H ML PROTEIN+CREATIN PROT:CRE RATIO 282 mg/g CRE 0-200 H ML URINALYSIS, COM NOTE [facility] URINALYSIS, COM COLOR Yellow Yellow ML URINALYSIS, COM URINE CLARITY Sl. Cloudy Clear ML URINALYSIS, COM GLUCOSE, UR Normal mg/dl Normal ML URINALYSIS, COM BILIRUBIN URINE Negative mg/dL Negative ML URINALYSIS, COM KETONE UR 50 mg/dl Negative A ML URINALYSIS, COM SP.GR. DIPSTX 1.010 1.002-1.030 ML URINALYSIS, COM PH UR 6.5 5.0 - 8.0 ML URINALYSIS, COM PROT DIPSTX Negative mg/dl Negative ML URINALYSIS, COM UROBILI 1 mg/dl Normal A ML URINALYSIS, COM NITRITE Negative Negative ML URINALYSIS, COM OCCULT BLOOD-UR Negative /ul Negative ML URINALYSIS, COM LEUK ESTERASE Negative /ul Negative ML URINALYSIS, COM WBC 0 SEEN /hpf 0-5 ML URINALYSIS, COM RBC 0 SEEN /hpf 0-5 ML URINALYSIS, COM EPI,SQUAMOUS 0-5 SEEN /hpf 5-10 ML URINALYSIS, COM BACTERIA 1+ /hpf None Seen ML URINALYSIS, COM MUCUS 0 SEEN /hpf <or=2+ ML LDH NOTE [facility] LDH LDH 268 U/L 84-246 H ML URIC ACID NOTE [facility] URIC ACID URIC 5.9 mg/dL 2.6-6.0 ML The drugs N-Acetylcysteine and Metamizole may falsely depress this assay. COMPREHENSIVE M NOTE [facility] M GLU 91 mg/dL 74-106 ML Please note revised GLUCOSE reference range effective 08/20/2017. [facility] BUN 5 mg/dL 7-18 L ML [facility] CREAT,SERUM 0.49 mg/dL 0.55-1.02 L ML The validity of the calculated GFR GFRAA in patients over 70 years has not been determined. Clinical correlation is essential. [facility] M EST GFR 155 mL/min >60 ML Non- GFR Calc [facility] EST GFR - AA 187 mL/min >60 ML GFR Calc [facility] M ECRCL 139.70 ml/min ML [facility] BUN/CRE 10.3 RATIO 10-20 ML [facility] T PROT 6.9 g/dL 6.4-8.2 ML [facility] ALB 2.4 g/dL 3.2-5.0 L ML [facility] GLOB 4.5 g/dL 2.2-4.2 H ML [facility] A/G 0.5 RATIO 0.9-2.4 L ML [facility] CA,TOTAL 8.2 mg/dL 8.5-10.1 L ML [facility] AST 44 U/L 15-37 H ML [facility] ALK P 162 U/L 45-117 H ML COMPREHENSIVE M ALT 32 U/L 13-56 ML COMPREHENSIVE M T BILI 0.90 mg/dL 0.20-1.00 ML For patients on eltrombopag therapy, use of Dimension [place] TBIL is not recommended. COMPREHENSIVE M NA 136 mmol/L 136-145 ML COMPREHENSIVE M POTASSIUM 3.4 mmol/L 3.5-5.1 L ML COMPREHENSIVE M CL 105 mmol/L 98-107 ML COMPREHENSIVE M CO2 22.0 mmol/L 21.0-32.0 ML COMPREHENSIVE M GAP 9 5-15 ML SERUM CREATININ NOTE [facility] SERUM CREATININ CREAT,SERUM mg/dL 0.55-1.02 ML ADDED TO C108 SERUM CREATININ EST GFR mL/min >60 ML ADDED TO C108 SERUM CREATININ EST GFR - AA mL/min >60 ML ADDED TO C108 CBC-COMPLETE BL NOTE [facility] CBC-COMPLETE BL WBC 6.6 K/mm3 4.4-11.0 ML CBC-COMPLETE BL RBC 4.20 M/mm3 4.2-5.4 ML CBC-COMPLETE BL HGB 11.5 g/dL 12.0-15.0 L ML CBC-COMPLETE BL HCT 36.0 37-47 L ML CBC-COMPLETE BL MCV 85.7 fL 81-99 ML CBC-COMPLETE BL MCH 27.4 pg 27.0-32.0 ML CBC-COMPLETE BL MCHC 31.9 g/dL 32-36 L ML CBC-COMPLETE BL RDW CV 15.9 11.6-14.6 H ML CBC-COMPLETE BL RDW SD 49.0 fl 35.1-43.9 H ML CBC-COMPLETE BL PLT 224 K/mm3 150-450 ML CBC-COMPLETE BL MPV 10.1 fl 6.2-12.0 ML GLUCOSE CHALLEN NOTE [facility] GLUCOSE CHALLEN GLU GEST 50G 1H 97 mg/dL 70-140 ML COMPREHENSIVE M NOTE [facility] COMPREHENSIVE M GLU 97 mg/dL 74-106 ML Please note revised GLUCOSE reference range effective 08/20/2017. COMPREHENSIVE M BUN 7 mg/dL 7-18 ML COMPREHENSIVE M CREAT,SERUM 0.42 mg/dL 0.55-1.02 L ML The validity of the calculated GFR GFRAA in patients over 70 years has not been determined. Clinical correlation is essential. COMPREHENSIVE M EST GFR 185 mL/min >60 ML Non- GFR Calc COMPREHENSIVE M EST GFR - AA 224 mL/min >60 ML GFR Calc COMPREHENSIVE M BUN/CRE 16.8 RATIO 10-20 ML COMPREHENSIVE M T PROT 6.8 g/dL 6.4-8.2 ML COMPREHENSIVE M ALB 2.7 g/dL 3.2-5.0 L ML COMPREHENSIVE M GLOB 4.1 g/dL 2.2-4.2 ML COMPREHENSIVE M A/G 0.7 RATIO 0.9-2.4 L ML COMPREHENSIVE M CA,TOTAL 8.8 mg/dL 8.5-10.1 ML COMPREHENSIVE M AST 16 U/L 15-37 ML COMPREHENSIVE M ALK P 89 U/L 45-117 ML COMPREHENSIVE M ALT 21 U/L 13-56 ML COMPREHENSIVE M T BILI 0.40 mg/dL 0.20-1.00 ML For patients on eltrombopag therapy, use of Dimension [place] TBIL is not recommended. COMPREHENSIVE M NA 138 mmol/L 136-145 ML COMPREHENSIVE M POTASSIUM 3.4 mmol/L 3.5-5.1 L ML COMPREHENSIVE M CL 104 mmol/L 98-107 ML COMPREHENSIVE M CO2 25.0 mmol/L 21.0-32.0 ML COMPREHENSIVE M GAP 9 5-15 ML CBC-COMPLETE BL NOTE [facility] CBC-COMPLETE BL WBC 10.4 K/mm3 4.4-11.0 ML CBC-COMPLETE BL RBC 3.86 M/mm3 4.2-5.4 L ML CBC-COMPLETE BL HGB 11.2 g/dL 12.0-15.0 L ML CBC-COMPLETE BL HCT 35.2 37-47 L ML CBC-COMPLETE BL MCV 91.2 fL 81-99 ML CBC-COMPLETE BL MCH 29.0 pg 27.0-32.0 ML CBC-COMPLETE BL MCHC 31.8 g/dL 32-36 L ML CBC-COMPLETE BL RDW CV 14.6 11.6-14.6 ML CBC-COMPLETE BL RDW SD 48.0 fl 35.1-43.9 H ML CBC-COMPLETE BL PLT 299 K/mm3 150-450 ML CBC-COMPLETE BL MPV 9.6 fl 6.2-12.0 ML HEPATITIS C ANT NOTE [facility] HEPATITIS C ANT HEPATITIS C AB Non-Reactive Nonreactive ML Non Reactive: < 0.8 Equivocal: >/= 0.8 to < 1.0 Reactive: >/= 1.0 The CDC recommends that a reactive/equivocal HCV antibody result be followed up by the HCV Nucleic Acid Amplification test (566487) HEPATITIS B GAYLE NOTE [facility] HEPATITIS B GAYLE HEP B SURF AG Non-Reactive Nonreactive ML HIV - [facility] NOTE [facility] HIV - [facility] HIV Non-Reactive Nonreactive ML L509.8000 NOTE [facility] L509.8000 SYPHILIS ABS Non-reactive ML RUBELLA IGG NOTE [facility] RUBELLA IGG RUBELLA IGG Reactive Nonreactive ML Antibody Results Interpretation of Immune Status Non Reactive Presumed Non-Immune Equivocal Equivocal Reactive Presumed Immune PN N [facility]~[address] [place], [address]~ T AND AB SCREEN GEL NEGATIVE ML THYROID STIM HO NOTE [facility] THYROID STIM HO TSH 1.25 uIU/mL 0.358-3.74 ML URINALYSIS, ROU NOTE [facility] URINALYSIS, ROU COLOR Yellow Yellow ML URINALYSIS, ROU URINE CLARITY Clear Clear ML URINALYSIS, ROU GLUCOSE, UR Normal mg/dl Normal ML URINALYSIS, ROU BILIRUBIN URINE Negative mg/dL Negative ML URINALYSIS, ROU KETONE UR Negative mg/dl Negative ML URINALYSIS, ROU SP.GR. DIPSTX 1.025 1.002-1.030 ML URINALYSIS, ROU PH UR 6.0 5.0 - 8.0 ML URINALYSIS, ROU PROT DIPSTX 15 mg/dl Negative A ML URINALYSIS, ROU UROBILI Normal mg/dl Normal ML URINALYSIS, ROU NITRITE Negative Negative ML URINALYSIS, ROU OCCULT BLOOD-UR 10 /ul Negative A ML URINALYSIS, ROU LEUK ESTERASE Negative /ul Negative ML CBC W/DIFF, AUT NOTE [facility] CBC W/DIFF, AUT WBC 10.6 K/mm3 4.4-11.0 ML CBC W/DIFF, AUT RBC 4.48 M/mm3 4.2-5.4 ML CBC W/DIFF, AUT HGB 12.8 g/dL 12.0-15.0 ML CBC W/DIFF, AUT HCT 39.7 37-47 ML CBC W/DIFF, AUT MCV 88.6 fL 81-99 ML CBC W/DIFF, AUT MCH 28.6 pg 27.0-32.0 ML CBC W/DIFF, AUT MCHC 32.2 g/dL 32-36 ML CBC W/DIFF, AUT RDW CV 13.3 11.6-14.6 ML CBC W/DIFF, AUT RDW SD 43.0 fl 35.1-43.9 ML CBC W/DIFF, AUT PLT 367 K/mm3 150-450 ML CBC W/DIFF, AUT MPV 9.5 fl 6.2-12.0 ML CBC W/DIFF, AUT NEUT% 69.9 47-70 ML CBC W/DIFF, AUT LY% 21.7 19-41 ML CBC W/DIFF, AUT MONO% 6.4 0-10 ML CBC W/DIFF, AUT EO% 0.9 0-5 ML CBC W/DIFF, AUT BASO% 0.5 0-1 ML CBC W/DIFF, AUT IG% 0.600 0.0-0.9 ML IG% - Immature Granulocytes (promyelocytes, myelocytes and metamyelocytes) > 1% indicates that a LEFT SHIFT is Present. CBC W/DIFF, AUT ABSOLUTE NEUT 7.4 X10 3/uL 2.0-7.7 ML CBC W/DIFF, AUT ABSOLUTE LYMPH 2.29 X10 3/uL 0.83-4.51 ML CBC W/DIFF, AUT NUCLEATED RBC 0 0-5 ML CHLAMYDIA/GC NA NOTE [facility] CHLAMYDIA/GC NA CHLAMY,NUC ACID Negative Negative [facility] CHLAMYDIA/GC NA GC BY NUC ACID Negative Negative [facility] Performed at: =[address] [id number] Manager Assurance: Bia Holt MD, Phone: [phone] Pending Streptococcus agalactiae (B) Amount Growth Growth Streptococcus agalactiae (B): REACTION Ampicillin <=0.25 Clindamycin >=1 R Clindamycin.induced NEG Linezolid <=2 S Vancomycin 0.5 S A POSITIVE == ==== Impression /Plan: 39 wks + 6 days intrauterine for elective induction. Preparations in progress for delivery.
[2021-06-06] MEDS: Lactated Ringers 500 ML 999 ML IV ×2 (10:48→13:29)
[2021-06-06] MEDS: fentaNYL-bupivacaine (epidural) 100 ML BAG EPIDURAL (11:39)
[2021-06-06] MEDS: Penicillin G 3,000,000 Units 50 ML 100 UNITS IV (12:35)
[2021-06-06] MEDS: Ondansetron 4 MG/2 ML Vial IV (13:01)
[2021-06-06] MEDS: 0.9% Saline Lock 10 ML Syringe IV ×2 (13:02→18:13)
[2021-06-06] MEDS: Oxytocin 30 units/NS 500 ml 30 UNITS/500 ML IV.SOLN 334 UNITS IV (15:28)
--- NOTE | 2021-06-06 15:40 | OP.PCM_ITS ---
Maternal Data Information Final FANNY: 06/07/21 Final FANNY Source: US <20 weeks Gestational age: 39w6d Doctor Who Attended Delivery: Tommie Lee Vaginal Delivery Maternal Presentation Maternal Presentation: Elective Induction Type of Induction: Pitocin and Amniotomy Operative Information Date of Procedure: 06/06/21 Pre-Operative Diagnosis: IUP Post-Operative Diagnosis: IUP Surgery / Procedure Performed: Spontaneous Vaginal Delivery Type of Anesthesia: Epidural Estimated Blood Loss: 250 cc Fluids Replaced: crystalloid Findings Description of Procedure: Spontaneous vaginal delivery of a viable male with Apgars of 8/9 from an occiput anterior presentation with lightly meconium s tained amniotic fluid and normal three-vessel placenta. No episiotomy. First- degree midline laceration repaired with 3-0 Rapide suture under epidural. Sponges okay. Delivery physician: Matthew Berumen MD. Presentation: Vertex Amniotic Membrane Rupture Type: Artificial Amniotic Fluid Description: Lightly stained meconium Placental Delivery Description: Spontaneous Placenta Disposition: [facility] Cord Vessel Description: 3 Vessels Cord Entanglement: None A Gender: Male (1 minute): 8 (5 minute): 9 Post Vaginal Delivery Medications Given After Delivery: IV Pitocin Episiotomy Description: None Laceration: Midline and 1st degree Complication Complications: None
--- NOTE | 2021-06-06 15:44 | PCM.DC ---
Discharge Instructions Diet Discharge Diet: No restrictions Activity Discharge Activity: May Drive (In 1 to 2 days if not taking narcotic pain medication), May Shower and May Take a Tub Bath May resume sexual activity in: 4-6 weeks Additional Activity Instructions:: Nothing in the vagina for 4-6 weeks. You may return to work/school in 6 weeks. Dressing / Incision Call your doctor if you observe: Fever of 101 or Higher, Inability to urinate, Inability to have a bowel movement and Using more than 1 pad per hour Follow Up Care Please Follow Up With: Matthew Berumen MD When: Call [phone] to make an appointment with your doctor in 6 weeks. Test Results: Test results from this visit will be discussed in further detail at your follow-up appointment, if applicable. Discharge Plan Admission Admit Date/Time: 06/06/21 06:50 Primary Reason for Your Visit: Vaginal Delivery Attending Provider: Matthew Berumen Primary Care Provider: Bertha Sims Discharge Orders/Prescriptions Prescriptions: No Action Prenatabs FA 1 TABLET tablet 1 tab PO DAILY RF: 0 aspirin 81 mg Capsule 81 mg PO DAILY RF: 0 Referrals / Follow Up: Bertha Sims MD [Primary Care Provider] - Disposition Disposition (needs filled in before D/C Order can be placed): Home, Self Care
[2021-06-06] MEDS: Ibuprofen 600 MG Tablet PO (18:12)
[2021-06-07] VITALS (9 sets, daily range): BP systolic 109–134; BP diastolic 72–76; PULSE 66–87; RESP 14–18; TEMP 35.8–36.8; O2SAT 96–99
[2021-06-07] MEDS: Ibuprofen 600 MG Tablet PO ×3 (00:20→13:10)
--- NOTE | 2021-06-07 10:25 | PCM.PN.OB ---
Subjective Subjective Patient without complaints. Breast-feeding going well. Wants to go home later today if baby is able to go. Objective Data Objective Data Vital Signs: Vital Signs Temp Pulse Resp BP Pulse Ox 96.4 F L 84 14 134/76 H 99 06/07/21 08:08 06/07/21 08:08 06/07/21 08:08 06/07/21 08:08 06/07/21 08:08 Oxygen Delivery Method Room Air Weight: 223 lb Body Mass Index (BMI) 38.2 Intake & Output: Intake and Output for Last 24 Hours 06/05/21 06/06/21 06/07/21 23:59 23:59 23:59 Intake Total 2506.79 / 2506.79 Output Total 700 / 700 200 / 200 Balance 1806.79 / 1806.79 -200 / -200 Lab / Micro Data Result Diagrams: 06/06/21 07:30 Labs: Laboratory Results - last 24 hr 06/06/21 07:30: Blood Type A POSITIVE, Antibody Screen NEGATIVE Micro: Microbiology 06/06/21 07:40 Nasal Secretion SARS-CoV-2 Antigen (Rapid) - Final Assessment & Plan (1) Vaginal delivery: PLAN: Doing well day #1 status post routine spontaneous vaginal delivery. Will discharge to home with routine instructions.
--- NOTE | 2021-06-07 10:27 | PCM.DC ---
Discharge Instructions Diet Discharge Diet: No restrictions Activity May resume sexual activity in: 4-6 weeks Additional Activity Instructions:: Nothing in the vagina for 4-6 weeks. You may return to work/school in 6 weeks. Dressing / Incision Call your doctor if you observe: Fever of 101 or Higher, Inability to urinate, Inability to have a bowel movement and Using more than 1 pad per hour Follow Up Care Please Follow Up With: Matthew Berumen MD Test Results: Test results from this visit will be discussed in further detail at your follow-up appointment, if applicable. Discharge Plan Admission Admit Date/Time: 06/06/21 06:50 Primary Reason for Your Visit: Vaginal Delivery Attending Provider: Matthew Berumen Primary Care Provider: Bertha Sims Discharge Orders/Prescriptions Prescriptions: No Action Prenatabs FA 1 TABLET tablet 1 tab PO DAILY RF: 0 aspirin 81 mg Capsule 81 mg PO DAILY RF: 0 Referrals / Follow Up: Bertha Sims MD [Primary Care Provider] - Disposition Disposition (needs filled in before D/C Order can be placed): Home, Self Care
--- NOTE | 2021-06-07 12:35 | CM.ED ---
Addendum entered by Trang Guzman 06/07/21 12:54: Agpars 02/24 Trang Guzman DERMATOLOGICAL SURGEON LISWS Original Note: SW Note Reason for consult: History of Depression SW reviewed chart and spoke to patient and her nurse, Lucie, for this assessment. Lucie reports no concerns or issues. Mom: Odalys Keen PNC: Dr. Berumen Control: IUD Baby: John Lewis : 06/[birth year] Weight: 7# 10 ounces Associate Product Manager: Dr. Lin at [facility] NB born at 39 + 6 weeks Breast feeding and reports it is going good. MOB's other children: Fredy age 2 07/20. FOB not in room as he was taking Fredy from maternal grandmother to paternal grandmother to care for him. Housing: Patient resides in a house with the FOB and their 2 children Transportation: Patient has access to drive and is able to drive when released by the MD Supplies: Patient has all supplies such as clothes, diapers, crib/bassinet and carseat Supports: Patient said that her will be off work for 2 weeks to assist with the nb. Patient said that her mom resides in [place] and is a support and the FOB's family lives close and is available for support. Education: Patient graduated high school and nursing school. 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 Patient plans to return to work in 8 weeks. Patient said that when she works she will be home with the but will primarily work on nights and weekends so her can assist with the children. Agency Involvement: None FOB: Fan Time Together: 4 years Involved at : Yes [facility] [employer] [facility] [employer] No other children beside with patient ( 2 2 and nb) FOB MH/AOD and DV History: Denied. Per chart patient denied DV. MH History: Patient reports that she was previously on medication for depression, Wellbutrin, and when speaking to the MD she recommended patient discontinue medication if possible. Patient said that she discontinued Wellbutrin and has been fine. Patient said that she only took Wellbutrin for 3-4 months. Patient said that a few years ago she had been on Prozac. Patient denied any history of Post Depression. Patient appears to be open and proactive regarding her mental health as she has contacted MD in the past for medication when needed and when this medical writer noted that to patient she agreed she was proactive. Patient was educated on Shaken Baby, Post Depression and Safe Sleeping Patient denied AOD History or drug use. Patient was given handout for resources including [facility], Counseling, phone contact for PPD support and web sites for PPD support. Plan: Home at discharge Trang PEREZ
== END 2021-06-07 17:15 | disposition home or self-care (01) | DRG 807 ==
PROVIDERS: Obstetrics & Gynecology; Admitting Provider Obstetrics & Gynecology; PCP Family Medicine; Referring Provider Obstetrics & Gynecology; Visit Provider Obstetrics & Gynecology
DX: O77.0 Labor and delivery complicated by meconium in amniotic fluid (principal); Z37.0 Single live birth; Z3A.39 39 weeks gestation of pregnancy
CPT/HCPCS: 59025; 59050; 85025; 86850; 86900; 86901; 87426; 99218; J7120; A4216; G0378; J2405

== ENCOUNTER 2021-07-23 15:05 | Outpatient (CLI) | payer OTHER, SELFPAY ==
[2021-07-28 13:44] LABS: HPV Reflexed? NOT INDICATED
== END 2021-07-23 23:59 | disposition short-term general hospital (02) ==
LOC: LABSPEC 15:10
PROVIDERS: PCP Family Medicine; Visit Provider Obstetrics & Gynecology
DX: Z12.4 Encounter for screening for malignant neoplasm of cervix (principal)
CPT/HCPCS: 88175; G0145

== ENCOUNTER 2025-06-29 11:44 | Day surgery (SDC) | payer OTHER, SELFPAY ==
--- NOTE | 2025-06-29 11:54 | PCM.PRE.AN2 ---
ASA Classification* ASA Classification ASA Classification: 2 Assessment & Plan Anesthesia* Anesthesia Assessment Anesthesia Assessment: Discussed sedation and/or anesthesia options, risks, benefits, and alternatives with patient/parents/legal guardian/POA. Questions invited. The patient/parents/legal guardian/POA seems to understand and agrees to proceed with anesthesia plan. Reviewed the physical assessment, medical history, allergy history and patient home medications list prior to surgery/procedure/anesthetic and documented any changes. Performed airway and anesthesia risk assessments. Anesthesia Type Anesthesia Type: MAC Anesthesia Focused Assessment* Airway Assessment Mouth opens: >3 cm Mallampati Score: II Labs Anesthesia Preop lab: CBC WBC, (4.4-11.0) 10.0 K/mm3 06/06/21, 07:30 RBC, (4.2-5.4) 4.31 M/mm3 06/06/21, 07:30 Hgb, (12.0-15.0) 11.3 g/dL L 06/06/21, 07:30 Hct, (37-47) 36.0 % L 06/06/21, 07:30 Plt Count, (150-450) 302 K/mm3 06/06/21, 07:30 CHEMISTRY Potassium, (3.5-5.1) 3.8 mmol/L 05/02/21, 10:09 Sodium, (136-145) 139 mmol/L 05/02/21, 10:09 BUN, (7-18) 7 mg/dL 05/02/21, 10:09 Creatinine, (0.55-1.02) 0.45 mg/dL L 05/02/21, 10:09 Glucose, (74-106) 92 mg/dL 05/02/21, 10:09 TSH, (0.358-3.74) 1.25 uIU/mL 11/20/20, 14:59 COAG Pre-Assessment Diagnosis/Proposed Procedure Planned Operative Procedure(s): COLONOSCOPY Anesthesia History 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 When Was Last Pacemaker Check QUESTION #4 FULL TEXT: You/Your Family Experience fever (hyperthermia) with Anesthesia Last Oral Intake Last Oral intake: Last Oral Intake NPO since Meds taken in AM with sips of water? Meds patient instructed to take am of surgery PONV PONV - snowsport instructor: PONV - snowsport instructor Female Yes 06/26/25 12:36 HX of Motion Sickness Yes 06/26/25 12:36 HX of N/V After Surgery No 06/26/25 12:36 Non-Smoker Yes 06/26/25 12:36 Duration of Surgery greater No 06/26/25 12:36 than 60 minutes Number of Risk Factors 3 06/26/25 12:36 PONV Score Moderate Risk 06/26/25 12:36 Height & Weight Height & Weight: Anesthesia: Height & Weight Height 5 ft 4 in 06/06/21 07:31 Respiratory Assessment Respiratory Assessment - snowsport instructor: Respiratory Tract Infection Hx - snowsport instructor Hx Respiratory Tract Infection No 06/26/25 12:36 STOP Sleep Apnea STOP Sleep Apnea - snowsport instructor: STOP Sleep Apnea - snowsport instructor Hx Hypertension Yes 06/26/25 12:36 Hx Sleep Apnea No 06/26/25 12:36 CPAP BIPAP Do you snore loudly (louder No 06/26/25 12:36 than talking or can be heard Do you often feel tired/ No 06/26/25 12:36 fatigued/ sleepy during daytime? Has anyone observed you stop No 06/26/25 12:36 breathing during sleep? STOP Results Negative 06/26/25 12:36 QUESTION #5 FULL TEXT : Do you snore loudly (louder than talking or can be heard through closed doors)? Tobacco Use History Tobacco Use History - snowsport instructor: Tobacco Use History - snowsport instructor Tobacco Use Smoking Status Never smoker 06/26/25 12:36 Hx Tobacco Use No 06/26/25 12:36 Years Smoking Packs Smoked per Day Smoking Cessation Date was within the last 15 years Hx Smoking Cessation Date Hx Smoking Cessation Counseling Hematologic Medial History Hematologic Hx - snowsport instructor: Hematologic Medical Hx - tooling manager Hx of Blood Transfusion No 06/26/25 12:36 Hx of Transfusion in last 3 No 06/26/25 12:36 Months Date of Last Transfusion (if within last 3 months) Ever experience any problems No 06/26/25 12:36 with transfusion(s)? Specify any problems Hx of Preganancy in last 3 No 06/26/25 12:36 Months Nurse Filling Out Transfusion [facility] 06/26/25 12:36 & Questions: Date: 06/26/25 06/26/25 12:36 Time: 12:41 06/26/25 12:36 Patient unable to answer at this time (ie. confused, unrespo /Reproduction History /Reproductive History - snowsport instructor: /Reproductive Hx- snowsport instructor Hx Now No 06/26/25 12:36 Gestational Age (in weeks): EDC: Hx Hx Para Hx Section SAB No 06/26/25 12:36 Does the father of the baby or his family experience fever w Father of the baby Malignant Hypertension history comment Active Medications Active Medications: Current Medications Generic Name Dose Route Start Last Admin Trade Name Freq PRN Reason Stop Dose Admin Lactated Ringer's 1,000 mls @ 15 mls/hr 06/29/25 12:00 IV .Q48H ALISIA PFSH Medical History Anxiety Seizures Non-smoker History of echocardiogram Hypertension Vaginal delivery Depression Chronic hypertension Obesity (BMI 35.0-39.9 without comorbidity) Back pain affecting Home Medications ?Medication ?Instructions ?Recorded ?Last Taken ?Type alprazolam 0.5 mg tablet 0.5 mg PO DAILY PRN anxiety 06/05/25 Unknown History bupropion HCl 150 mg 24 hr tablet, 150 mg PO QAM 06/05/25 Unknown History extended release (Wellbutrin XL) escitalopram oxalate 20 mg tablet 20 mg PO QDAY 06/05/25 Unknown History lisinopril 10 1 tab PO QDAY 06/05/25 Unknown History mg-hydrochlorothiazide 12.5 mg tablet Allergy/AdvReac Type Severity Reaction Status Date / Time No Known Allergies Allergy Verified 06/26/25 12:34 Surgical History Hx of tonsillectomy Social History Smoking Status: Never smoker alcohol intake: never Review of Systems (Anesthesia) ROS Narrative System reviewed and no additional complaints, except as documented.
[2025-06-29 12:00] LABS: Internal QC Validated? YES +Cl - CLEAR BKGD; Pregnancy, Urine Negative Negative
--- NOTE | 2025-06-29 12:12 | HP.PCM_ITS ---
[facility] - General General Date of Admission: 07/25/25 Date of Service: 06/29/25 [facility] Narrative FIFI WALLACE, is a 39 F who presents [ Chief Complaint: Blood in stool Patient here today to discuss colonoscopy. Patient has had blood in her stool over the past few years. It typically comes and flares and she will have it for a few days in a row. She thinks this may be related to hemorrhoids. She sees blood in the toilet bowl and on the toilet paper. Patient's brother also had similar symptoms and underwent colonoscopy which revealed precancerous polyps. Patient has never had a colonoscopy. She denies family history of colon cancer. Patient has a formed bowel movement daily without straining. She denies abdominal pain, diarrhea, constipation, fever, or unintentional weight loss. [facility] Medical History Anxiety Seizures Non-smoker History of echocardiogram Hypertension Vaginal delivery Depression Chronic hypertension Obesity (BMI 35.0-39.9 without comorbidity) Back pain affecting Home Medications ?Medication ?Instructions ?Recorded ?Last Taken ?Type alprazolam 0.5 mg tablet 0.5 mg PO DAILY PRN anxiety 06/05/25 Unknown History bupropion HCl 150 mg 24 hr tablet, 150 mg PO QAM 06/05 Unknown History extended release (Wellbutrin XL) escitalopram oxalate 20 mg tablet 20 mg PO QDAY Unknown History lisinopril 10 1 tab PO QDAY 06/05/25 Unkno wn History mg-hydrochlorothiazide 12.5 mg tablet Allergy/AdvReac Type Severity Reaction Status Date / Time No Known Allergies Allergy Verified 06/26/25 12:34 Surgical History Hx of tonsillectomy Social History Smoking Status: Never smoker alcohol intake: never ROS Constitutional Constitutional: Denies fatigue, fever(s), poor appetite, weight gain or weight loss Gastrointestinal Gastrointestinal: Denies belching, bloating, change in bowel habits, change in stool character, chewing difficulty, coffee ground emesis, constipation, cramping, diarrhea, dyspepsia, dysphagia, early satiety, excessive flatus, fecal incontinence, heartburn, hematemesis, hematochezia, hemorrhoids, loose stools, melena, nausea, odynophagia, rectal bleeding, tenesmus, vomiting or weight changes Physical Exam Const alert, oriented x3, no apparent distress and healthy appearing General Appearance: cooperative GI normal to inspection, nondistended, normoactive bowel sounds, soft to palpation, non-tender and non-distended Percussion: normal to percussion Rectal Exam: deferred Results Lab / Micro Data Labs: Laboratory Results - last 24 hr 06/29/25 11:50: Urine Test Negative Assessment & Plan Assessment/Plan (1) Blood in stool: PLAN: Assessment and Plan Assessment and Plan (1) Blood in stool: Status: Acute Plan: Fifi is a 39-year-old female patient with past medical history of hypertension here today for evaluation of the blood in her stool. Patient has had bright red blood with bowel movements intermittently for some time now. Blood is typically bright red and can be in the toilet bowl and on the toilet paper. Patient endorses her brother recently underwent colonoscopy due to similar symptoms and he was found to have precancerous polyps. She denies family history of colon cancer. She denies alarm symptoms such as fever or unintentional weight loss. Patient will undergo colonoscopy for evaluation of her entire colon. Differential diagnosis for blood in her stool includes diverticular bleeding, hemorrhoids and/or polyps. Procedure and risks were explained and patient was agreeable to proceed. - Colonoscopy - Follow-up as needed Note: Portions of this note may have been selectively carried forward from previous documentation to ensure continuity and accuracy of the clinical record. All imported information has been reviewed and updated as necessary to reflect the current patient status, findings, and clinical decision-making for this encounter. [employer] speech recognition labor representative software was used to create portions of this document. Sound alike and misspelled words, as well as other labor representative errors may be contained in the documentation. ]
[2025-06-29 12:24] VITALS: BP 107/67; PULSE 68; RESP 16; TEMP 37.6; O2SAT 100; BMI 35.5
[2025-06-29] MEDS: Lactated Ringers 1,000 ML 15 ML IV (12:37)
[2025-06-29 13:40] VITALS: BP 107/67; BP 92/57; PULSE 52; RESP 16; TEMP 36.2; O2SAT 100
--- NOTE | 2025-06-29 13:41 | OP.PROVAT_ITS ---
06/29/2025 Fareed Calderon Do Re : Colonoscopy procedure for Odalys Keen Dear Dr. Calderon This procedure was performed on Sunday, June 29, 2025. My impressions and recommendations are as follows: Impressions : - The entire examined colon is normal on direct and retroflexion views. - No specimens collected. Recommendations : - Discharge patient to home. - Resume previous diet. - Continue present medications. - Repeat colonoscopy in 10 years for screening purposes. My findings are described in the full procedure note, which is enclosed. If I can be of further assistance, please feel free to contact me at . Sincerely, Cr Deshpande, 06/29/2025 1:41:15 PM This report has been signed electronically.
--- NOTE | 2025-06-29 13:41 | OP.COLON_ITS ---
Patient Name: Odalys Keen Procedure Date: 06/29/2025 1:08 PM Date of : 1985 Age: 39 Procedure: Colonoscopy Indications: Screening for colorectal malignant neoplasm Providers: Cr Deshpande DO Referring MD: Fareed Calderon Do Medicines: Monitored Anesthesia Care Patient Profile: This is a 39 year old female. Refer to note in patient chart for documentation of history and physical. Last Colonoscopy: none. The patient's first colonoscopy is today. Complications: No immediate complications. Procedure: Pre-Anesthesia Assessment: - Prior to the procedure, a History and Physical was performed, and patient medications and allergies were reviewed. The patient is competent. The risks and benefits of the procedure and the sedation options and risks were discussed with the patient. All questions were answered and informed consent was obtained. Patient identification and proposed procedure were verified by the physician in the pre-procedure area. Mental Status Examination: alert and oriented. Airway Examination: normal oropharyngeal airway and neck mobility. Respiratory Examination: clear to auscultation. CV Examination: normal. Prophylactic Antibiotics: The patient does not require prophylactic antibiotics. Prior Anticoagulants: The patient has taken no anticoagulant or antiplatelet agents. ASA Grade Assessment: II - A patient with mild systemic disease. After reviewing the risks and benefits, the patient was deemed in satisfactory condition to undergo the procedure. The anesthesia plan was to use monitored anesthesia care (MAC). Immediately prior to administration of medications, the patient was re-assessed for adequacy to receive sedatives. The heart rate, respiratory rate, oxygen saturations, blood pressure, adequacy of pulmonary ventilation, and response to care were monitored throughout the procedure. The physical status of the patient was re-assessed after the procedure. After I obtained informed consent, the scope was passed under direct vision. Throughout the procedure, the patient's blood pressure, pulse, and oxygen saturations were monitored continuously. The Colonoscope was introduced through the anus and advanced to the cecum, identified by appendiceal orifice and ileocecal valve. The colonoscopy was performed without difficulty. The patient tolerated the procedure well. The quality of the bowel preparation was adequate. The terminal ileum, ileocecal valve, appendiceal orifice, and rectum were photographed. Scope In: 1:23:03 PM Scope Withdrawal Time 0 hours 7 minutes 39 seconds Scope Out: 1:35:03 PM Total Procedure Duration Time 0 hours 12 minutes 0 seconds Findings: The perianal and digital rectal examinations were normal. The entire examined colon appeared normal on direct and retroflexion views. Non-bleeding internal hemorrhoids were found during retroflexion. The hemorrhoids were Grade II (internal hemorrhoids that prolapse but reduce spontaneously). Impression: - The entire examined colon is normal on direct and retroflexion views. - No specimens collected. Recommendation: - Discharge patient to home. - Resume previous diet. - Continue present medications. - Repeat colonoscopy in 10 years for screening purposes. Procedure Code(s): --- Professional --- G0121, Colorectal cancer screening; colonoscopy on individual not meeting criteria for high risk CPT copyright 2021 [employer]. All rights reserved. The codes documented in this report are preliminary and upon procedure manager review may be revised to meet current compliance requirements. Cr Deshpande DO 06/29/2025 1:41:15 PM This report has been signed electronically. Number of Addenda: 0 Note Initiated On: 06/29/2025 1:08 PM
--- NOTE | 2025-06-29 13:44 | PCM.POST.ANE ---
Anesthesia: Postop Eval I Current Vital Signs Temperature: 97.2 F Pulse Rate: 64 Blood Pressure: 92/57 Respiratory Rate: 16 Pulse Ox: 99 Oxygen Delivery Method: Room Air Assessment Airway patent: Yes Spontaneous unlabored respirations: Yes Mental status: Awake and Calm nausea: No Vomiting: No Anesthesia Complication: No Fluid Hydration Crystalloid volume administer (ml): 600 Total IV fluid infused: 600 Progress Note Anesthesia document: Postop Eval 1 completed: Yes
[2025-06-29 13:45] VITALS: BP 107/65; BP 107/67; BP 92/57; PULSE 64; PULSE 75; RESP 16; TEMP 36.2; O2SAT 100; O2SAT 99
[2025-06-29 13:50] VITALS: BP 107/67; BP 113/77; PULSE 67; RESP 16; O2SAT 100
[2025-06-29 13:55] VITALS: BP 106/72; BP 107/67; PULSE 63; RESP 16; TEMP 36.6; O2SAT 100
--- NOTE | 2025-06-29 13:58 | PCM.POSTANE2 ---
Anesthesia Postop Eval I Sum Postop Eval Completion status Anesthesia document: Postop Eval 1 completed: Yes Anesthesia Postop Eval I Summary Anesthesia Postop Eval I Summary: Anesthesia Postop Eval I: Assessment Summary Airway patent Yes 06/29/25 13:45 [email or web address] Spontaneous unlabored Yes 06/29/25 13:45 [email or web address] respirations Mental status Awake,Calm 06/29/25 13:45 [email or web address] nausea No 06/29/25 13:45 [email or web address] Vomiting No 06/29/25 13:45 [email or web address] Anesthesia Postop Eval I: Fluid Summary Crystalloid volume administer 600 06/29/25 13:45 [email or web address] (ml) Colloids volume administered ( ml) Blood Product volume administered (ml) Total IV fluid infused 600 06/29/25 13:45 [email or web address] Anesthesia Postop Eval I: Summary Notes Anesthesia Complication No 06/29/25 13:45 [email or web address] Anesthesia Complication Comment: Post-operative progress note Anesthesia: Postop Eval II Evaluation Mental status: Awake Pain Level: 0 nausea: No Vomiting: No
[2025-06-29 14:12] VITALS: BP 107/67
== END 2025-06-29 14:22 | disposition home or self-care (01) ==
LOC: EN 11:45 → AC 11:46
PROVIDERS: Anesthesiology; PCP Family Medicine; Referring Provider Family Medicine; Visit Provider Internal Medicine Gastroenterology
PROC: 0DJD8ZZ Inspection of Lower Intestinal Tract, Via Natural or Artificial Opening Endoscopic (ICD-10-PCS; CPT 45378; principal; 2025-06-29 12:55)
DX: K64.1 Second degree hemorrhoids (principal); I10 Essential (primary) hypertension
CPT/HCPCS: 45378; 81025; J2405